=== PATIENT | female | born 1965 | race Caucasian/White ===

== ENCOUNTER 2020-04-19 07:34 | Emergency (ER) | payer OTHER ==
[~2020-04-19] VITALS: Ht 167.6 cm; Wt 80.5 kg
--- NOTE | 2020-04-19 08:01 | NUR ---
PT CAME BY POV FROM [facility]. PT DX WITH STREP THROAT ON MONDAY AND HAS DEVELOPED AN ORAL ABCESS. IV IN PLACE LAC 20GA.
--- NOTE | 2020-04-19 08:07 | NUR ---
MEDS: CLINDAMYCIN 150MG, TAKE 2 Q6HR, HYDROCODONE/APAP 5/325 MG TAB, 1 TAB Q6HR PRN PAIN
[2020-04-19] MEDS ORDERED: CLIN150C14 PO (08:28)
[2020-04-19] MEDS ORDERED: HYDR-3237 PO (08:28)
[2020-04-19] MEDS ORDERED: DEXAMETHASONE 4 MG/ML, 1ML IVPush ONE (08:30)
[2020-04-19] MEDS ORDERED: DEXAMETHASONE 4 MG/ML, 1ML ONE (08:41)
[2020-04-19] MEDS ORDERED: ACETAMINOPHEN 500 MG TABLET ONE (09:17)
--- NOTE | 2020-04-19 09:34 | NUR ---
PT RESTING COMFORTABLY WITH EYES CLOSED. AWAITING ENT.
[2020-04-19] MEDS ORDERED: LIDOCAINE 1%-EPI 1:100K, 50ML INFIL ONE (10:00)
[2020-04-19] MEDS ORDERED: BENZOCAINE 20% SPRAY 0.5ML TP ONE (10:00)
[2020-04-19] MEDS ORDERED: BENZOCAINE 20% SPRAY 0.5ML ONE (10:01)
[2020-04-19] MEDS ORDERED: BENZOCAINE AEROSOL SPRAY 20%, 60ML ONE (10:01)
--- NOTE | 2020-04-19 10:06 | NUR ---
LIDOCAINE AND HURRICANE SPRAY PROVIDED TO DR PAYNE.
--- NOTE | 2020-04-19 10:06 | NUR ---
ENT AT BEDSIDE
--- NOTE | 2020-04-19 10:37 | NUR ---
DR PAYNE PERFORMED PROCEDURE AND DRAINED ABSCESS SUCCESSFULLY. WITH PT TOLERATING WELL. PROVIDED CLEAR LIQUIDS PER DR PAYNE. MEDICATION FOR PAIN TO BE ORDERED.
[2020-04-19] MEDS ORDERED: ONDANSETRON 2MG/ML, 2ML ONE (10:44)
[2020-04-19] MEDS ORDERED: MORPHINE SULFATE 4 MG/ML, 1ML ONE (10:44)
[2020-04-19] MEDS ORDERED: ONDANSETRON 2MG/ML, 2ML IVPush ONE (11:00)
[2020-04-19] MEDS ORDERED: MORPHINE SULFATE 4 MG/ML, 1ML IVPush ONE (11:00)
[2020-04-19] MEDS ORDERED: SODIUM CHLORIDE 0.9%, 500ML IVBOLUS ONE (11:00)
[2020-04-19 11:59] VITALS: BP 133/73
== END 2020-04-19 12:26 | disposition home or self-care (01) ==
LOC: ED 09:10
DX: J36 Peritonsillar abscess (principal); H92.01 Otalgia, right ear
CPT/HCPCS: 42700; 96361; 96374; 96375; 99285; J1100; J2270; J2405; J7040

== ENCOUNTER → 2020-04-23 | Outpatient (CLI) | payer OTHER ==
[~2020-04-23] MED LIST: CLIN150C14 PO; HYDR-3237 PO; OMNIPAQUE 350 MG/ML, 100ML BOTTLE ONE
== END | disposition home or self-care (01) ==
LOC: RAD 11:14
PROVIDERS: ATTEND Student in an Organized Health Care Education/Training Program
DX: R13.10 Dysphagia, unspecified (principal); M54.2 Cervicalgia
CPT/HCPCS: 70491; Q9967